=== PATIENT | male | born 2000 | race Caucasian/White ===

== ENCOUNTER 2021-05-25 07:00 | Outpatient (CLI) | payer OTHER | END 2021-05-25 23:59 | disposition home or self-care (01) | LOC: LAB 07:00 | PROVIDERS: ATTEND Nurse Practitioner | DX: R05.9 Cough, unspecified (principal); Z20.822 Contact with and (suspected) exposure to COVID-19 ==

== ENCOUNTER 2021-05-25 20:15 | Emergency (ER) | payer OTHER ==
[2021-05-25 20:23] VITALS: BP 143/93
--- NOTE | 2021-05-25 20:32 | ED Physician Documentation ---
History of Present Illness - Stated complaint Stated Complaint: FLU SYMPTOMS - Chief complaint Chief Complaint: Abd Pain - Additonal information Additional information: 21-year-old male presents emergency department for evaluation of dry cough, congestions body aches fatigue nausea and diarrhea. He is fully vaccinated for COVID-19 in July 2020 but is concerned that he could have a breakthrough case. Non-smoker. Takes no prescribed medications. He is reporting for duty tomorrow at [employer] and is requesting Covid screening at this time. Review of Systems Constitutional: reports: Chills, Myalgias, Fatigue. denies: Fever Ears: reports: Reviewed and negative Nose: reports: Rhinorrhea / runny nose Throat: reports: Reviewed and negative Cardiac: denies: Chest pain / pressure, Palpitations GI: reports: Nausea, Diarrhea. denies: Abdominal Pain, Vomiting, Constipation : reports: Reviewed and negative Skin: reports: Reviewed and negative Musculoskeletal: reports: Reviewed and negative PD PAST MEDICAL HISTORY - Present Medications Home Medications: Ambulatory Orders Medication Instructions Recorded Confirmed Sertraline [Zoloft] 50 mg PO DAILY 05/25/21 05/25/21 - Allergies Allergies/Adverse Reactions: Allergies Allergy/AdvReac Type Severity Reaction Status Date / Time No Known Drug Allergies Allergy Verified 05/25/21 20:21 PD ED PE NORMAL - General General: Alert and oriented X 3, No acute distress - HEENT HEENT: Atraumatic, Ears normal - Neck Neck: Supple, no meningeal sign - Cardiac Cardiac: RRR, No murmur - Respiratory Respiratory: No respiratory distress, Clear bilaterally - Abdomen Abdomen: Normal bowel sounds, Soft, Non tender - Back Back: No CVA TTP, No spinal TTP Results - Vitals Vitals: Vital Signs - 24 hr 05/25/21 20:18 Temperature 36.9 C Heart Rate 95 Respiratory 18 Rate Blood Pressure 143/93 H O2 Saturation 99 Oxygen O2 Source Room air PD MEDICAL DECISION MAKING - ED course Complexity details: reviewed results, re-evaluated patient, d/w patient ED course: 21-year-old male presents emergency department for evaluation of 24 hours dry cough, congestion myalgias fatigue nausea and diarrhea. He is concerned he may have COVID-19 though he was fully vaccinated in July 2020. He has an unremarkable cardiopulmonary exam. Vital signs are also within establish normal limits. Patient will be screened for COVID-19. Emergent return precautions were discussed. Departure - Departure Disposition: 01 Home, Self Care Clinical Impression: Flu-like symptoms Condition: Stable Record reviewed to determine appropriate education?: Yes Comments: Haim you were seen here today for body aches chills congestion cough nausea and diarrhea. The symptoms are most consistent with a virus. We are screening you for COVID-19. We will only call you if the results are positive. I do recommend that you get plenty of rest, fluids at home. You have a Covid test pending. You need to self quarantine until the result is done and negative. Do not leave your house. Do not get near anybody. The results should be done in 48 to 72 hours. We will call with a positive result, the fastest way to get a negative result for confirmation though is to go to the hospital website at [email or web address], click on the [facility] [employer] tab and sign up for the patient portal. If any friends or family get sick and would like to have a Covid test done, but do not have signs or symptoms that would necessitate being hospitalized, we encourage testing through our coronavirus swabbing station, call [phone] to schedule an appointment.
== END 2021-05-25 20:44 | disposition home or self-care (01) ==
LOC: ED 20:15
DX: R05.9 Cough, unspecified (principal); R68.83 Chills (without fever); R19.7 Diarrhea, unspecified; R11.0 Nausea; M79.10 Myalgia, unspecified site; R53.83 Other fatigue; Z20.822 Contact with and (suspected) exposure to COVID-19
CPT/HCPCS: 99283

== ENCOUNTER 2021-08-01 00:10 | Emergency (ER) | payer OTHER ==
[2021-08-01 00:24] VITALS: BP 139/98
[2021-08-01 02:35] LABS: B. PARAPERTUSSIS- RESP PCR PAN NOT DETECTED; B. PERTUSSIS- RESP PCR PANEL NOT DETECTED; C. PNEUMONIAE- RESP PCR PANEL NOT DETECTED; CORONAVIRUS 229E-RESP PCR NOT DETECTED; CORONAVIRUS HKU1-RESP PCR NOT DETECTED; CORONAVIRUS NL63-RESP PCR NOT DETECTED; CORONAVIRUS OC43-RESP PCR NOT DETECTED; HUMAN METAPNEUMOVIRUS NOT DETECTED; INFLUENZA A- RESP PCR PANEL NOT DETECTED; INFLUENZA B - RESP PCR PANEL NOT DETECTED; M. PNEUMONIAE- RESP PCR PANEL NOT DETECTED; PARAINFLUENZA VIRUS 1 NOT DETECTED; PARAINFLUENZA VIRUS 2 NOT DETECTED; PARAINFLUENZA VIRUS 3 NOT DETECTED; PARAINFLUENZA VIRUS 4 NOT DETECTED; RHINOVIRUS/ENTEROVIRUS NOT DETECTED; RSV- RESP PCR PANEL NOT DETECTED; SARS-CoV-2 -RESP PCR PANEL NOT DETECTED
--- NOTE | 2021-08-01 03:04 | ED Physician Documentation ---
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 He states that he does not have symptoms of fever or cough but he does have diarrhea and reflux as well as a headache. He is here for Covid testing. He does state that he feels that he has had an issue with diarrhea more since getting .He has taken some Imodium for this and feels improved. Review of Systems Constitutional: denies: Fever Eyes: denies: Decreased vision Ears: denies: Ear pain Nose: denies: Congestion Throat: reports: Sore throat (raw from reflux) Cardiac: denies: Chest pain / pressure, Palpitations, Pedal edema, Calf pain Respiratory: denies: Dyspnea, Cough, Wheezing GI: reports: Nausea, Vomiting, Diarrhea. denies: Abdominal Pain : denies: Dysuria, Frequency PD PAST MEDICAL HISTORY - Past Medical History Past Medical History: No Cardiovascular: None Respiratory: None Neuro: None Endocrine/Autoimmune: None GI: None : None HEENT: None Psych: None Musculoskeletal: None Derm: None - Past Surgical History Past Surgical History: Yes HEENT: Other - Present Medications Home Medications: Ambulatory Orders Medication Instructions Recorded Confirmed Sertraline [Zoloft] 50 mg PO DAILY 05/25/21 05/25/21 - Allergies Allergies/Adverse Reactions: Allergies Allergy/AdvReac Type Severity Reaction Status Date / Time No Known Drug Allergies Allergy Verified 05/25/21 20:21 - Social History Does the pt smoke?: No Smoking Status: Never smoker Does the pt drink ETOH?: No Does the pt have substance abuse?: No - Immunizations Immunizations are current?: Yes PD ED PE NORMAL - Vitals Vital signs reviewed: Yes (hypertensive ) - General General: Alert and oriented X 3, No acute distress, Well developed/nourished, Other (21 y/o male with elevated BMI is in no distress) - HEENT HEENT: Atraumatic, PERRL, EOMI - Neck Neck: Supple, no meningeal sign, No bony TTP - Cardiac Cardiac: RRR, No murmur - Respiratory Respiratory: No respiratory distress, Clear bilaterally - Abdomen Abdomen: Soft, Non tender - Back Back: No CVA TTP, No spinal TTP - Derm Derm: Normal color, Warm and dry, No rash - Extremities Extremities: No deformity, No edema - Neuro Neuro: Alert and oriented X 3, dining car steward 2-12 intact, No motor deficit, No sensory deficit, Normal speech Eye Opening: Spontaneous Motor: Obeys Commands Verbal: Oriented GCS Score: 15 - Psych Psych: Normal mood, Normal affect Results - Vitals Vitals: Vital Signs - 24 hr 08/01/21 00:18 Temperature 36.6 C Heart Rate 95 Respiratory 17 Rate Blood Pressure 139/98 H O2 Saturation 100 Oxygen O2 Source Room air - Labs Labs: Laboratory Tests 08/01/21 01:23 Nasal Adenovirus (PCR) NOT DETECTED Nasal B. parapertussis DNA (PCR) NOT DETECTED Nasal Coronavir 229E PCR NOT DETECTED Nasal Coronavir HKU1 PCR NOT DETECTED Nasal Coronavir NL63 PCR NOT DETECTED Nasal Coronavir OC43 PCR NOT DETECTED Nasal Enterovir/Rhinovir PCR NOT DETECTED Nasal Influenza B PCR NOT DETECTED Nasal Influenza A PCR NOT DETECTED Nasal Parainfluen 1 PCR NOT DETECTED Nasal Parainfluen 2 PCR NOT DETECTED Nasal Parainfluen 3 PCR NOT DETECTED Nasal Parainfluen 4 PCR NOT DETECTED Nasal RSV (PCR) NOT DETECTED Nasal B.pertussis DNA PCR NOT DETECTED Nasal C.pneumoniae (PCR) NOT DETECTED Leslie Human Metapneumo PCR NOT DETECTED Nasal M.pneumoniae (PCR) NOT DETECTED Nasal SARS-CoV-2 (PCR) NOT DETECTED PD MEDICAL DECISION MAKING - ED course Complexity details: reviewed results, re-evaluated patient, considered differential, d/w patient ED course: 21-year-old male with an elevated BMI has had an exposure to Covid at his workplace and he tested negative today for Covid. He does negative for the remainder of the items on the [employer] fire. He does have some issue with diarrhea and vomiting and it sounds like this diarrhea has been present prior to his exposure as well. Departure - Departure Disposition: 01 Home, Self Care Clinical Impression: Gastroenteritis Condition: Stable Instructions: ED Gastroenteritis Non Infec Follow-Up: [facility] [Provider Group]
== END 2021-08-01 03:18 | disposition home or self-care (01) ==
LOC: ED 00:10
DX: K52.9 Noninfective gastroenteritis and colitis, unspecified (principal); Z20.822 Contact with and (suspected) exposure to COVID-19; K21.9 Gastro-esophageal reflux disease without esophagitis
CPT/HCPCS: 0202U; 99281; 99283